=== PATIENT | male | born 1960 | race Caucasian/White ===

== ENCOUNTER 2020-08-13 22:21 | Emergency (ER) | payer MEDICARE ==
[2020-08-13] MEDS ORDERED: Ondansetron PF 4 MG/2 ML Vial ONE (22:56)
[2020-08-13 23:00] LABS: ALT (SGPT) 85 U/L (8-55); AST (SGOT) 43 U/L (5-34); Albumin 4.7 g/dL (3.5-5.0); Alkaline Phosphatase 82 U/L (40-110); Anion Gap 22 mmol/L (10-20); BUN (Urea Nitrogen) 13 mg/dL (8.4-25.7); Bilirubin, Total 0.3 mg/dL (0.2-1.2); Calc. Creatinine Clearance 0 mL/min (70-130); Calcium 9.1 mg/dL (7.8-10.44); Carbon Dioxide 20 mmol/L (22-29); Chloride 105 mmol/L (98-107); Globulin 3.2 g/dL (2.4-3.5); Glucose 153 mg/dL (70-105); Lipase 38 U/L (8-78); Potassium 3.7 mmol/L (3.5-5.1); Protein, Total 7.9 g/dL (6.0-8.3); Sodium 143 mmol/L (136-145)
[2020-08-13 23:02] LABS: Acetaminophen Less than 6.0 mcg/mL (10.0-30.0); Alcohol 185 mg/dL (Less than 10); Salicylate Less than 8.0 mg/dL (15.0-30.0)
[2020-08-13 23:09] LABS: Band 2 % (5-11); Eosinophils 2 % (0-10); Lymphocytes 46 % (21-51); Monocytes 8 % (0-10); Neutrophil 34 % (42-75); Reactive Lymphocytes 8 % (0-10)
[2020-08-13 23:11] LABS: Hemoglobin 14.1 g/dL (13.5-17.5); Mean Corpuscular HGB CONC 32.4 g/dL (32.0-36.0); Mean Corpuscular Hemoglobin 29.9 pg (27.0-33.0); Mean Corpuscular Volume 92.4 fl (81.2-95.1); Mean Platelet Volume 11.1 fl (7.4-10.4); Platelet Count 251 10x3/uL (150-450); RBC Distribution Width 13.1 % (11.5-14.5); Red Blood Cell (RBC) Count 4.71 10x6/uL (4.32-5.72); White Blood Cell (WBC) Count 17.6 10x3/uL (3.5-10.5)
[2020-08-13 23:12] LABS: Platelet Morphology Comment Appears Adequate
[2020-08-13 23:13] LABS: MDiff Complete? YES; Manual Diff?? YES
[2020-08-13] MEDS ORDERED: niCARdipine 20MG In NaCl 20 MG/200 ML BAG ONE (23:21)
[2020-08-13] MEDS ORDERED: levETIRAcetam in NS 100 ML ONE (23:21)
[2020-08-13 23:25] LABS: PTT 23.6 sec (22.0-33.0); Prothrombin Time 10.6 sec (9.5-12.1)
== END 2020-08-14 00:06 | disposition short-term general hospital (02) ==
LOC: CSHERS 22:21 → CSHHBO 22:21 → CSHERS 08-14 00:06
DX: S06.309A Unspecified focal traumatic brain injury with loss of consciousness of unspecified duration, initial encounter (principal); E11.9 Type 2 diabetes mellitus without complications; Z79.82 Long term (current) use of aspirin; Z79.84 Long term (current) use of oral hypoglycemic drugs; Z79.899 Other long term (current) drug therapy; W19.XXXA Unspecified fall, initial encounter
CPT/HCPCS: 36415; 36416; 70450; 71045; 72125; 80053; 80307; 83690; 83735; 84484; 85025; 85610; 85730; 86850; 86900; 86901; 93005; 93010; 96365; 96374; 96375; J1953; J2405

== ENCOUNTER 2021-05-15 07:45 | Outpatient (CLI) | payer MEDICARE | END 2021-05-15 07:46 | disposition home or self-care (01) | LOC: CSHCT 07:45 | PROVIDERS: ATTEND Family Medicine | DX: R31.9 Hematuria, unspecified (principal); R91.1 Solitary pulmonary nodule | CPT/HCPCS: 74177 ==

== ENCOUNTER 2022-01-25 07:33 | Outpatient (CLI) | payer OTHER | END 2022-01-25 07:34 | disposition home or self-care (01) | LOC: CSHCT 07:33 | PROVIDERS: ATTEND Family Medicine | DX: R91.1 Solitary pulmonary nodule (principal); R91.8 Other nonspecific abnormal finding of lung field; E27.8 Other specified disorders of adrenal gland | CPT/HCPCS: 71250 ==